=== PATIENT | female | born 1950 | race Caucasian/White ===

== ENCOUNTER 2017-10-12 08:18 | Emergency (ER) | payer SELFPAY ==
[~2017-10-12] VITALS: Ht 172.7 cm; Wt 105.0 kg
[2017-10-12 08:20] VITALS: BP 132/64; PULSE 64; RESP 14; TEMP 97.4; O2SAT 96
[2017-10-12] MEDS ORDERED: SERT-132 PO (09:09)
[2017-10-12] MEDS ORDERED: KETOROLAC TROMETHAMINE 60 MG/2 ML (IM) VIAL IM ONE (09:15)
--- NOTE | 2017-10-12 09:16 | PD ---
HPI Chief Complaint: Pain: Acute or Chronic Time Seen by Provider: 09:08 Travel History International Travel<30 days: No Contact w/Intl Traveler<30days: No Traveled to known affect area: No History of Present Illness HPI 67-year-old female presents for evaluation of right knee and leg pain. She reports that yesterday she was walking for approximately 1.5 miles at the [facility] [place] when she developed pain in her posterior right knee and right calf. The pain is a aching pain which is constant, worse with flexion of the knee or with walking. She tried taking Tylenol yesterday but the pain persisted which prompted evaluation. The patient reports that she lives in [place], travel down here with her in August, currently staying in [place] however they drove up to the [facility] region 3 days ago in order to attend the races. She reports that she has had issues with her right knee in the past requiring corticosteroid injections. 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 No history of DVT. No other complaints at this time. PFSH Past Medical History Medical History: Denies Significant Hx Social History Alcohol Use: No Tobacco Use: No Allergies-Medications (Allergen,Severity, Reaction): Coded Allergies: No Known Allergies (Unverified , 10/12/17) Reported Meds & Prescriptions Reported Meds & Active Scripts Active Capzasin-Hp Topical (Capsaicin) 0.1% Cream 1 Applic TOPICAL TID Tylenol-Codeine #3 (Acetaminophen-Codeine) 300-30 mg Tab 1 Tab PO Q6H PRN Naproxen 500 Mg Tab 500 Mg PO BID 10 Days Reported Sertraline (Sertraline HCl) 50 Mg Tab 50 Mg PO DAILY Review of Systems Except as stated in HPI: all other systems reviewed are Neg Physical Exam Narrative GENERAL: Well-developed well-nourished female in no acute distress Skin: Warm and dry. HEAD: Atraumatic. Normocephalic. EYES: Pupils equal and round. No scleral icterus. No injection or drainage. ENT: No nasal bleeding or discharge. Mucous membranes pink and moist. NECK: Trachea midline. No JVD. CARDIOVASCULAR: Regular rate and rhythm. No murmur appreciated. RESPIRATORY: No accessory muscle use. Clear to auscultation. Breath sounds equal bilaterally. MUSCULOSKELETAL: No obvious deformities. No edema. Prominent varicose veins noted bilaterally. There is some tenderness to palpation to the posterior right knee and right calf muscle. Patient has pain with flexion of the right knee. There is no obvious joint effusion. The Achilles tendon is intact and nontender. 2+ dorsalis pedis pulses bilaterally. NEUROLOGICAL: Awake and alert. No obvious cranial nerve deficits. Motor grossly within normal limits. Normal speech. Data Data Last Documented VS Vital Signs Date Time Temp Pulse Resp B/P (MAP) Pulse Ox O2 Delivery O2 Flow Rate FiO2 10/12/17 10:58 20 10/12/17 08:20 97.4 64 132/64 (86) 96 Orders Orders Us Leg Venous Doppler (10/12/17 09:12) Knee, Complete (4vws) (10/12/17 ) Ketorolac Inj (Toradol Inj) (10/12/17 09:15) Crutches (10/12/17 10:59) Meek Bandage (10/12/17 10:59) Ed Discharge Order (10/12/17 10:59) [facility] Medical Decision Making Medical Screen Exam Complete: Yes Emergency Medical Condition: Yes Medical Record Reviewed: Yes Differential Diagnosis Osteoarthritis, muscle strain, muscle cramp, DVT, Mcfarland cyst Narrative Course Right knee x-ray, ultrasound right leg has been ordered. CONCLUSION: 1. No sonographic evidence of right lower extremity DVT. 2. Findings consistent with right popliteal fossa Mcfarland's cyst measuring 9.9 x 2.3 x 4.0 cm. Knee x-ray reveals a small effusion, osteoarthritis. The patient will be treated symptomatically with short course of NSAIDs as well as Tylenol with codeine, given an Meek wrap and crutches. She is requesting to be referred to an orthopedist as she will bend down here from [place] for the next several months. Diagnosis Primary Impression: Mcfarland cyst Additional Impression: Right calf pain Referrals: Jeremy Hickey Jr., MD Additional Instructions: Follow-up with an orthopedist such as Dr. Hickey, call to make an appointment, as needed. Avoid activities that exacerbate her pain. Medication as needed. Do not drive or drink alcohol when taking Tylenol with codeine. Return for any emergent medical conditions. Med/Other Pt SpecificInfo: Prescription(s) given, Orthopedic Instructions Scripts Capsaicin Topical (Capzasin-Hp Topical) 0.1% Cream 1 APPLIC TOPICAL TID for Pain Management, #1 TUBE 0 Refills Prov: Russell Arredondo MD 10/12/17 Acetaminophen-Codeine (Tylenol-Codeine #3) 300-30 mg Tab 1 TAB PO Q6H Y for PAIN, #20 TAB 0 Refills Prov: Russell Arredondo MD 10/12/17 Naproxen (Naproxen) 500 Mg Tab 500 MG PO BID for 10 Days, #20 TAB 0 Refills Prov: Russell Arredondo MD 10/12/17 Disposition: 01 DISCHARGE HOME Condition: Stable Fermin Rendon Oct 12, 2017 09:16
--- NOTE | 2017-10-12 10:13 | RADRPT ---
EXAM DATE/TIME: 10/12/2017 09:34 [facility] COMPARISON: No previous studies available for comparison. INDICATIONS : Right leg pain. MEDICAL HISTORY : Right leg pain. Mcfarland's cyst. SURGICAL HISTORY : None. ENCOUNTER: Initial ACUITY: 2 day PAIN SCORE: 8/10 LOCATION: Right leg. TECHNIQUE: Venous ultrasound of the leg was performed from the inguinal ligament to the proximal calf. Real-kennedy e, color Doppler and spectral tracing, compression and augmentation techniques were used. FINDINGS: There is normal compressibility of the deep venous system from the inguinal region to the proximal ca lf. No echogenic clot is seen in the lumen of the common femoral, femoral, popliteal, and posterior tibial veins. There is a normal response of the venous system to proximal and distal augmentation an d respiration. Anechoic cystic popliteal fossa mass measuring 9.9 x 2.3 x 4.0 cm. CONCLUSION: 1. No sonographic evidence of right lower extremity DVT. 2. Findings consistent with right popliteal fossa Mcfarland's cyst measuring 9.9 x 2.3 x 4.0 cm. Leland Roth MD on October 12, 2017 at 10:10 Board Certified Radiologist. This report was verified electronically.
--- NOTE | 2017-10-12 10:50 | RADRPT ---
EXAM DATE/TIME: 10/12/2017 09:22 [facility] COMPARISON: No previous studies available for comparison. INDICATIONS : Right knee pain; no known injury. MEDICAL HISTORY : Arthritis. SURGICAL HISTORY : None. ENCOUNTER: Initial ACUITY: 1 day PAIN SCORE: 8/10 LOCATION: Right posterior knee. FINDINGS: Four view examination of the right knee demonstrates no degenerative osteoarthritic changes, most pro minent in the lateral tibiofemoral joint space with marginal spurring. Small suprapatellar effusion i s present. No acute fracture. Well-corticated fabella posteriorly in the lateral joint space. CONCLUSION: 1. Early degenerative osteoarthritic changes, most severe in the lateral tibiofemoral joint space. 2. Small suprapatellar effusion. 3. No fracture Jonathan Gayle MD on October 12, 2017 at 10:46 Board Certified Radiologist. This report was verified electronically.
[2017-10-12 10:58] VITALS: RESP 20
[2017-10-12] MEDS ORDERED: TYLETAB34 PO (10:58)
[2017-10-12] MEDS ORDERED: NAPR500T2 PO (10:58)
[2017-10-12] MEDS ORDERED: CAPZ0.1C TOPICAL (10:58)
== END 2017-10-12 11:42 | disposition home or self-care (01) ==
LOC: NEPK 08:18
DX: M71.21 Synovial cyst of popliteal space [Baker], right knee (principal); M79.661 Pain in right lower leg
CPT/HCPCS: 73564; 93971; 96372; 99284; E0113; J1885